=== PATIENT | male | born 1960 | race Caucasian/White ===

== ENCOUNTER → 2017-08-10 | Outpatient (CLI) | payer BC | END | disposition home or self-care (01) | LOC: LABWHC1 12:06 | PROVIDERS: ATTEND Otolaryngology | DX: J30.89 Other allergic rhinitis (principal) | CPT/HCPCS: 36415 ==

== ENCOUNTER 2019-11-04 09:56 | Day surgery (SDC) | payer BC ==
[2019-11-03 09:48] VITALS: BMI 34.4
[~2019-11-04 09:56] MED LIST: LACTATED RINGERS 1,000 ML IV SCH
[2019-11-04 10:38] VITALS: RESP 16; TEMP 97
[2019-11-04] MEDS ORDERED: LIDOCAINE 1% 20 ML VIAL (10MG/ML) FOR IV START INTRADERMA ONE (10:38)
[2019-11-04] MEDS ORDERED: LIDOCAINE 1% INJ 10MG/ML (20 ML MDV) ONE (11:05)
[2019-11-04] MEDS ORDERED: PROPOFOL 10 MG/ML 20 ML VIAL IV ONE (11:05)
[2019-11-04] MEDS ORDERED: KETAMINE 10 MG/ML 20 ML VIAL ONE (11:05)
--- NOTE | 2019-11-04 11:26 | P.PCN ---
Date of Procedure: 11/04/19 Procedure(s) Performed: Brief history: Patient is a pleasant 5-year-old white male, scheduled for an elective upper endoscopy as well as colonoscopy as a part of evaluation of a sense of GERD and screening for colorectal neoplasia. Procedure performed: Esophagogastroduodenoscopy with biopsy Colonoscopy with snare polypectomy Preoperative diagnosis: GERD Screening for colon cancer Anesthesia: MAC Procedure: After informed consent was obtained from the patient was brought into the endoscopy unit and IV sedation was administered by anesthesia under continuous monitoring. Initially upper endoscopy was done. The Olympus GF 160 video endoscope was inserted inserted into the mouth and esophagus intubated without any difficulty and was gradually advanced into the stomach and duodenum and carefully examined. The bulb and second part of the duodenum appeared normal. The scope was then withdrawn into the stomach adequately insufflated with air and upon careful examination the antrum had mild gastritis and biopsies were done from this area. The body, cardia and fundus appeared normal. The scope was then withdrawn into the esophagus. Small to moderate size hiatal hernia noted The GE junction was located at 40 cm to the incisors. It appeared regular with linear erosions in the distal esophagus consistent with LA grade B reflux esophagitis. Rest of the esophagus appeared normal. Patient tolerated the procedure well. At this time the patient continued to remain sedation. Initial digital rectal examination was normal. Olympus CF 160 video colonoscope was then inserted into the rectum and gradually advanced to the cecum without any difficulty. Careful examination was performed as the scope was gradually being withdrawn. The prep was excellent. In the base of the cecum there were 2 polyps measuring 5 mm in size both of which were removed by snare polypectomy. The cecum, ascending colon, transverse colon, descending colon, sigmoid colon appeared normal. In the sigmoid colon polyp by snare polypectomy. The rectum appeared normal. Retroflexion was performed in the rectum and no lesions were noted. Patient tolerated the procedure well. Impression: 1. Upper endoscopy revealed small to moderate size hiatal hernia and LA grade B reflux esophagitis 2. Colonoscopy revealed 5 mm 2 cecal polyps and a 5 mm sigmoid colon polyp status post snare polypectomy Recommendations: Findings of this examination were discussed with the patient as well as his family. he was advised to follow with the biopsy results. He will stop the famotidine he was advised to start on Prilosec 20 mg daily and follow antireflux measures. If the biopsies of the colon polyps show an adenoma he can have a repeat colonoscopy in 3-5 years
[2019-11-04 11:45] VITALS: BP 146/83; PULSE 78
== END 2019-11-04 12:37 | disposition home or self-care (01) ==
LOC: ORWHC2ENDO 09:56
PROVIDERS: ATTEND Internal Medicine Gastroenterology
DX: K21.0 Gastro-esophageal reflux disease with esophagitis (principal); Z12.11 Encounter for screening for malignant neoplasm of colon; K29.50 Unspecified chronic gastritis without bleeding; D12.0 Benign neoplasm of cecum; D12.5 Benign neoplasm of sigmoid colon; K44.9 Diaphragmatic hernia without obstruction or gangrene; Z79.899 Other long term (current) drug therapy; I10 Essential (primary) hypertension; I20.9 Angina pectoris, unspecified
CPT/HCPCS: 88305; 45385; 43239; J2001; J2704

== ENCOUNTER 2021-02-16 15:34 | Emergency (ER) | payer BC ==
--- NOTE | 2021-02-16 16:13 | XR ---
EXAMINATION TYPE: XR chest 2V DATE OF EXAM: 02/16/2021 COMPARISON: 02/16/2021 HISTORY: Shortness of breath TECHNIQUE: Frontal and lateral views of the chest are obtained. FINDINGS: Scattered senescent parenchymal changes noted. Hyperinflation compatible with COPD. Scattered interstitial infiltrates suspicious for Covid 19 pneumonia. Heart size is stable. Mediastinal structures are stable and grossly unremarkable. No evidence for hilar prominence. Degenerative changes dorsal spine. IMPRESSION: 1. Scattered interstitial infiltrates suspicious for Covid 19 pneumonia.
[2021-02-16] MEDS ORDERED: ACETAMINOPHEN TAB 500 MG TAB PO STA (17:52)
[2021-02-16] MEDS ORDERED: IBUPROFEN 600 MG TAB PO STA (17:52)
--- NOTE | 2021-02-16 17:57 | ED ---
General Adult HPI - General Chief complaint: Recheck/Abnormal Lab/Rx Stated complaint: ANNIE Time Seen by Provider: 02/16/21 17:11 Source: patient Mode of arrival: ambulatory Limitations: no limitations - History of Present Illness Initial comments: 61-year-old male with a past medical history of GERD, hypertension presents to the emergency room for a chief complaint of shortness of breath. Patient reports that he was diagnosed with COVID 5 days ago. He states he developed symptoms of cough and shortness of breath 7 days ago. Patient presents today to evaluate his lungs. Patient states that he feels he cannot take a deep breath without coughing. Wants to make sure there is not fluid in his lungs. Patient denies chest pain. Patient states he is not taking Motrin or Tylenol today, has been having fevers. patient has also had some diarrhea. Denies vomiting but does admit to loss of appetite.Patient has no other complaints at this time inc luding chest pain, abdominal pain, nausea or vomiting, headache, or visual changes. - Related Data Home Medications Medication Instructions Recorded Confirmed Acid Reflux Medication 1 tab PO DAILY PRN 11/03/19 11/04/19 Hydrochlorothiazie(Dose Unknow 1 tab PO HS 11/03/19 11/04/19 Metoprolol(Dose Unknown) 1 tab PO HS 11/03/19 11/04/19 Previous Rx's Medication Instructions Recorded Albuterol Inhaler [Ventolin Hfa 2 puff INHALATION RT-QID PRN #1 02/16/21 Inhaler] inhaler Benzonatate [Tessalon Perles] 200 mg PO Q8H PRN #15 capsule 02/16/21 guaiFENesin [Mucinex] 600 mg PO Q12HR PRN #20 tablet.er 02/16/21 Allergies Allergy/AdvReac Type Severity Reaction Status Date / Time No Known Allergies Allergy Verified 02/16/21 15:52 Review of Systems ROS Statement: Those systems with pertinent positive or pertinent negative responses have been documented in the HPI. ROS Other: All systems not noted in ROS Statement are negative. Past Medical History Past Medical History: Chest Pain / Angina, GERD/Reflux, Hypertension Additional Past Medical History / Comment(s): chest pain ruled out not heart related by PCP, History of Any Multi-Drug Resistant Organisms: None Reported Additional Past Surgical History / Comment(s): oral surgery, vasectomy, Past Anesthesia/Blood Transfusion Reactions: Motion Sickness Past Psychological History: No Psychological Hx Reported Smoking Status: Never smoker Past Alcohol Use History: None Reported Past Drug Use History: None Reported - Past Family History Brother(s) Family Medical History: Cancer Mother Family Medical History: Cancer Father Family Medical History: Cancer General Exam Limitations: no limitations General appearance: alert, in no apparent distress Head exam: Present: atraumatic, normocephalic, normal inspection Eye exam: Present: normal appearance, PERRL, EOMI. Absent: scleral icterus, conjunctival injection, periorbital swelling ENT exam: Present: normal exam, mucous membranes moist Neck exam: Present: normal inspection. Absent: tenderness, meningismus, lymphadenopathy Respiratory exam: Present: other (Course lung sounds bilaterally). Absent: respiratory distress, wheezes, rales, rhonchi, stridor Cardiovascular Exam: Present: regular rate, normal rhythm, normal heart sounds. Absent: systolic murmur, diastolic murmur, rubs, gallop, clicks GI/Abdominal exam: Present: soft, normal bowel sounds. Absent: distended, tenderness, guarding, rebound, rigid Neurological exam: Present: alert Course Vital Signs 02/16/21 15:48 Temperature 98.6 F Pulse Rate 105 H Respiratory 20 Rate Blood Pressure 145/85 O2 Sat by Pulse 95 Oximetry Medical Decision Making - Medical Decision Making Vitals are stable. I did take his temperature myself in the room and it is 102.8. Likely the cause of his slight tachycardia at 105. Patient given Motrin and Tylenol in the emergency room. Chest x-ray was obtained which did show scattered interstitial infiltrates suspicious for COVID Pneumonia. I did confirm patient's positive test results through his phone at [facility]. Patient is satting 95-96% on room air. At this time patient is stable for discharge. I did discuss antibodies and patient does wish to have these done. He does meet for his BMI of 35.2. Patient will be given prescriptions for supportive medication. I discussed strict return parameter for any worsening symptoms such as shortness of breath. Disposition Clinical Impression: COVID-19, Pneumonia due to COVID-19 virus Disposition: HOME SELF-CARE Condition: Good Instructions (If sedation given, give patient instructions): Coronavirus Disease 2019 (COVID-19) Additional Instructions: Please take Motrin and Tylenol for fever. Please drink plenty of fluids. Take medications as directed. Follow-up with your doctor in one to 2 days. Return to the emergency room for any worsening symptoms such as worsening shortness of breath. Prescriptions: guaiFENesin [Mucinex] 600 mg PO Q12HR PRN #20 tablet.er PRN Reason: Congestion Benzonatate [Tessalon Perles] 200 mg PO Q8H PRN #15 capsule PRN Reason: Cough Albuterol Inhaler [Ventolin Hfa Inhaler] 2 puff INHALATION RT-QID PRN #1 inhaler PRN Reason: Shortness Of Breath Is patient prescribed a controlled substance at d/c from ED?: No Referrals: Cameron Katz DO [Primary Care Provider] - 1-2 days Time of Disposition: 17:56
[2021-02-16] MEDS ORDERED: BAMLANIVIMAB (EUA) 700 MG, ETESEVIMAB (EUA) 1,400 MG in SODIUM CHLORIDE 0.9% 50 ML IVPB ONE (18:30)
[2021-02-16 23:26] VITALS: BP 131/78; PULSE 94; RESP 15; TEMP 99
== END 2021-02-16 21:43 ==
LOC: EC 15:34
DX: U07.1 COVID-19 (principal); J12.82 Pneumonia due to coronavirus disease 2019; I10 Essential (primary) hypertension; K21.9 Gastro-esophageal reflux disease without esophagitis; Z79.899 Other long term (current) drug therapy
CPT/HCPCS: 71046; 99284; 96365; Q0245

== ENCOUNTER 2021-02-18 08:43 | Inpatient (IN) | payer BC ==
[2021-02-18] MEDS ORDERED: SODIUM CHLORIDE 0.9% 1,000 ML IV STA (08:52)
[2021-02-18] MEDS ORDERED: DEXAMETHASONE SOD PHOSPHATE 10 MG/ML 1 ML VIAL IV STA (08:53)
--- NOTE | 2021-02-18 08:56 | ED ---
General Adult HPI - General Stated complaint: ANNIE Time Seen by Provider: 02/18/21 08:44 Source: patient, EMS, RN notes reviewed Mode of arrival: EMS Limitations: no limitations - History of Present Illness Initial comments: This a 61-year-old male presents emergency department via EMS with chief complaint of shortness of breath. Patient states he tested positive for covid was seen here recently and was given monoclonal antibodies. Patient states he steadily declining. Patient states that he's felt increasing shortness breath no history of asthma or COPD patient is a nonsmoker. Patient does have a history of hypertension. Patient states that he's had some diarrhea no significant nausea vomiting he states that decreased oral intake. He's had on-and-off bodyaches, chills. - Related Data Home Medications Medication Instructions Recorded Confirmed Ascorbic Acid [Vitamin C] 1,000 mg PO HS 02/16/21 02/18/21 Cholecalciferol (Vitamin D3) 125 mcg PO HS 02/16/21 02/18/21 [Vitamin D3 (5000 Iu)] Metoprolol Succinate (ER) [Toprol 50 mg PO HS 02/16/21 02/18/21 Xl] RX: Echinacea 500 mg PO HS 02/16/21 02/18/21 RX: Omeprazole 20 mg PO HS 02/16/21 02/18/21 Zinc Sulfate [Orazinc] 220 mg PO HS 02/16/21 02/18/21 hydroCHLOROthiazide [Hydrodiuril] 25 mg PO HS 02/16/21 02/18/21 Previous Rx's Medication Instructions Recorded Benzonatate [Tessalon Perles] 200 mg PO Q8H PRN #15 capsule 02/16/21 RX: Albuterol Inhaler [Ventolin 2 puff INHALATION RT-QID PRN #1 02/16/21 Hfa Inhaler] inhaler guaiFENesin [Mucinex] 600 mg PO Q12HR PRN #20 tablet.er 02/16/21 Allergies Allergy/AdvReac Type Severity Reaction Status Date / Time No Known Allergies Allergy Verified 02/16/21 18:08 Review of Systems ROS Statement: Those systems with pertinent positive or pertinent negative responses have been documented in the HPI. ROS Other: All systems not noted in ROS Statement are negative. Past Medical History Past Medical History: Chest Pain / Angina, GERD/Reflux, Hypertension Additional Past Medical History / Comment(s): chest pain ruled out not heart related by PCP, History of Any Multi-Drug Resistant Organisms: None Reported Additional Past Surgical History / Comment(s): oral surgery, vasectomy, Past Anesthesia/Blood Transfusion Reactions: Motion Sickness Past Psychological History: No Psychological Hx Reported Smoking Status: Never smoker Past Alcohol Use History: None Reported Past Drug Use History: None Reported - Past Family History Brother(s) Family Medical History: Cancer Mother Family Medical History: Cancer Father Family Medical History: Cancer General Exam General appearance: alert, in no apparent distress Head exam: Present: atraumatic, normocephalic, normal inspection Eye exam: Present: normal appearance, PERRL, EOMI. Absent: scleral icterus, conjunctival injection, periorbital swelling ENT exam: Present: normal exam, normal oropharynx, mucous membranes moist, TM's normal bilaterally Neck exam: Present: normal inspection, full ROM. Absent: tenderness, meni ngismus, lymphadenopathy Respiratory exam: Present: decreased breath sounds. Absent: normal lung sounds bilaterally, respiratory distress, wheezes, rales, rhonchi, stridor Cardiovascular Exam: Present: regular rate, normal rhythm, normal heart sounds. Absent: systolic murmur, diastolic murmur, rubs, gallop, clicks Back exam: Absent: CVA tenderness (R), CVA tenderness (L) Neurological exam: Present: alert, oriented X3 Course Vital Signs 02/18/21 02/18/21 08:53 09:12 Temperature 98.6 F Pulse Rate 96 102 H Respiratory 20 22 Rate Blood Pressure 141/74 139/86 O2 Sat by Pulse 91 L 95 Oximetry Medical Decision Making - Medical Decision Making X-ray shows worsening infiltrates. Patient's pulse ox room air is 87 and 91. Patient does have some mild sore distress. Patient was placed on 2 L oxygen which improved. Patient be admitted for covid treatment. - Lab Data Result diagrams: 02/18/21 08:56 02/18/21 08:56 Lab Results 02/18/21 02/18/21 02/18/21 Range/Units 08:56 08:56 08:56 WBC 4.3 (3.8-10.6) k/uL RBC 4.97 (4.30-5.90) m/uL Hgb 14.8 (13.0-17.5) gm/dL Hct 42.2 (39.0-53.0) % MCV 85.0 (80.0-100.0) fL MCH 29.8 (25.0-35.0) pg MCHC 35.0 (31.0-37.0) g/dL RDW 13.3 (11.5-15.5) % Plt Count 149 L (150-450) k/uL MPV 8.0 Neutrophils % 60 % Lymphocytes % 30 % Monocytes % 8 % Eosinophils % 0 % Basophils % 0 % Neutrophils # 2.6 (1.3-7.7) k/uL Lymphocytes # 1.3 (1.0-4.8) k/uL Monocytes # 0.3 (0-1.0) k/uL Eosinophils # 0.0 (0-0.7) k/uL Basophils # 0.0 (0-0.2) k/uL APTT 22.8 (22.0-30.0) sec Sodium 137 (137-145) mmol/L Potassium 3.3 L (3.5-5.1) mmol/L Chloride 98 (98-107) mmol/L Carbon Dioxide 28 (22-30) mmol/L Anion Gap 11 mmol/L BUN 18 (9-20) mg/dL Creatinine 0.98 (0.66-1.25) mg/dL Est GFR (CKD-EPI)AfAm >90 (>60 ml/min/1.73 sqM) Est GFR (CKD-EPI)NonAf 83 (>60 ml/min/1.73 sqM) Glucose 120 H (74-99) mg/dL Calcium 8.4 (8.4-10.2) mg/dL Magnesium 2.0 (1.6-2.3) mg/dL Total Bilirubin 1.0 (0.2-1.3) mg/dL AST 122 H (17-59) U/L ALT 88 H (4-49) U/L Alkaline Phosphatase 46 (38-126) U/L Troponin I (0.000-0.034) ng/mL Total Protein 6.9 (6.3-8.2) g/dL Albumin 3.7 (3.5-5.0) g/dL 02/18/21 Range/Units 08:56 WBC (3.8-10.6) k/uL RBC (4.30-5.90) m/uL Hgb (13.0-17.5) gm/dL Hct (39.0-53.0) % MCV (80.0-100.0) fL MCH (25.0-35.0) pg MCHC (31.0-37.0) g/dL RDW (11.5-15.5) % Plt Count (150-450) k/uL MPV Neutrophils % % Lymphocytes % % Monocytes % % Eosinophils % % Basophils % % Neutrophils # (1.3-7.7) k/uL Lymphocytes # (1.0-4.8) k/uL Monocytes # (0-1.0) k/uL Eosinophils # (0-0.7) k/uL Basophils # (0-0.2) k/uL APTT (22.0-30.0) sec Sodium (137-145) mmol/L Potassium (3.5-5.1) mmol/L Chloride (98-107) mmol/L Carbon Dioxide (22-30) mmol/L Anion Gap mmol/L BUN (9-20) mg/dL Creatinine (0.66-1.25) mg/dL Est GFR (CKD-EPI)AfAm (>60 ml/min/1.73 sqM) Est GFR (CKD-EPI)NonAf (>60 ml/min/1.73 sqM) Glucose (74-99) mg/dL Calcium (8.4-10.2) mg/dL Magnesium (1.6-2.3) mg/dL Total Bilirubin (0.2-1.3) mg/dL AST (17-59) U/L ALT (4-49) U/L Alkaline Phosphatase (38-126) U/L Troponin I <0.012 (0.000-0.034) ng/mL Total Protein (6.3-8.2) g/dL Albumin (3.5-5.0) g/dL Disposition Clinical Impression: COVID-19, Pneumonia due to COVID-19 virus Disposition: ADMITTED IP TO THIS [facility] Condition: Poor Referrals: Cameron Katz DO [Primary Care Provider] - 1-2 days
[2021-02-18 09:19] LABS: Basophils % (A) 0 %; Eosinophils % (A) 0 %; HCT 42.2 % (39.0-53.0); HGB 14.8 gm/dL (13.0-17.5); Lymphocytes # (A) 1.3 k/uL (1.0-4.8); Lymphocytes % (A) 30 %; MCH 29.8 pg (25.0-35.0); Monocytes # (A) 0.3 k/uL (0-1.0); Monocytes % (A) 8 %; Neutrophils # (A) 2.6 k/uL (1.3-7.7); Neutrophils % (A) 60 %; Platelet Count 149 k/uL (150-450); RBC 4.97 m/uL (4.30-5.90); RDW 13.3 % (11.5-15.5); WBC 4.3 k/uL (3.8-10.6)
--- NOTE | 2021-02-18 09:20 | XR ---
EXAMINATION TYPE: XR chest 1V portable DATE OF EXAM: 02/18/2021 COMPARISON: 02/16/2021 HISTORY: Covid TECHNIQUE: Single frontal view of the chest is obtained. FINDINGS: The lungs bilaterally there receiving partially consolidative opacities most consistent with an acute pneumonic process. There is no pleural effusion or pneumothorax. Heart size is normal. The osseous structures are intact . Impression: interval worsening in the bilateral lung opacities
[2021-02-18 09:23] LABS: ALT 88 U/L (4-49); African American GFR (CKD) >90 (>60 ml/min/1.73 sqM); Anion Gap 11 mmol/L; Blood Urea Nitrogen 18 mg/dL (9-20); Calcium 8.4 mg/dL (8.4-10.2); Carbon Dioxide 28 mmol/L (22-30); Chloride 98 mmol/L (98-107); Glucose 120 mg/dL (74-99); Non-African American GFR(CKD) 83 (>60 ml/min/1.73 sqM); Sodium 137 mmol/L (137-145)
[2021-02-18 09:26] LABS: AST 122 U/L (17-59); Albumin 3.7 g/dL (3.5-5.0); Alkaline Phosphatase 46 U/L (38-126); Potassium 3.3 mmol/L (3.5-5.1); Total Protein 6.9 g/dL (6.3-8.2)
[2021-02-18] MEDS ORDERED: ONDANSETRON 4 MG/2 ML VIAL IVP PRN (10:10)
[2021-02-18] MEDS ORDERED: ACETAMINOPHEN TAB 325 MG TAB PO PRN (10:10)
[2021-02-18] MEDS ORDERED: IBUPROFEN 600 MG TAB PO PRN (10:10)
[2021-02-18] MEDS ORDERED: NALOXONE 0.4 MG/ML 1 ML VIAL IV PRN (10:10)
--- NOTE | 2021-02-18 12:42 | P.CNPUL ---
History of Present Illness Consult date: 02/18/21 Requesting physician: Nazario Shannon Reason for consult: dyspnea, cough, hypoxemia, pneumonia, abnormal CXR/CT Chief complaint: Shortness of breath. History of present illness: This is a 61-year-old male who was seen in the emergency department on February 18. He came in with chief complaint of shortness of breath. He also had fever, chills, cough, weakness, and fatigue. The patient has been feeling poorly for at least 10 days to 12 days. The patient apparently tested for COVID last Saturday, and heard about the results being positive on Saturday. The patient came into the emergency room on , February 16, and received monoclonal antibody was discharged from the emergency room. He had similar complaints to now but more recently, his complaints have gotten worse. He is very short of breath with any activity. Recent laying or sitting, he feels okay. His only major medical problem he tells me is hypertension. He sees a family doctor in [place], [place]. A list of his medications are included in the ER naif. When I went to see him in the ER, he was on 2 L nasal cannula. He was not receiving any IV fluids. Review of Systems REVIEW OF SYSTEMS: CONSTITUTIONAL: Weakness, fatigue, fever, chills, body aches. NEUROLOGIC: [ Negative.] HEENT: [ Negative.] CARDIAC: [Negative.] PULMONARY: Shortness of breath, cough, chest congestion. GI: Nausea. : [Negative.] RHEUMATOLOGIC: [ Negative.] IMMUNOLOGIC: [ Negative.] ENDOCRINE: [Negative. ] DERMATOLOGIC: [Negative.] Past Medical History Past Medical History: Chest Pain / Angina, GERD/Reflux, Hypertension Additional Past Medical History / Comment(s): chest pain ruled out not heart related by PCP, History of Any Multi-Drug Resistant Organisms: None Reported Additional Past Surgical History / Comment(s): oral surgery, vasectomy, Past Anesthesia/Blood Transfusion Reactions: Motion Sickness Past Psychological History: No Psychological Hx Reported Smoking Status: Never smoker Past Alcohol Use History: None Reported Past Drug Use History: None Reported - Past Family History Brother(s) Family Medical History: Cancer Mother Family Medical History: Cancer Father Family Medical History: Cancer Medications and Allergies Home Medications Medication Instructions Recorded Confirmed Type Albuterol Inhaler [Ventolin Hfa 2 puff INHALATION RT-QID PRN #1 02/16/21 02/18/21 Rx Inhaler] inhaler Ascorbic Acid [Vitamin C] 1,000 mg PO HS 02/16/21 02/18/21 History Benzonatate [Tessalon Perles] 200 mg PO Q8H PRN #15 capsule 02/16/21 02/18/21 Rx Cholecalciferol (Vitamin D3) 125 mcg PO HS 02/16/21 02/18/21 History [Vitamin D3 (5000 Iu)] Echinacea 500 mg PO HS 02/16/21 02/18/21 History Metoprolol Succinate (ER) [Toprol 50 mg PO HS 02/16/21 02/18/21 History Xl] Omeprazole 20 mg PO HS 02/16/21 02/18/21 History Zinc Sulfate [Orazinc] 220 mg PO HS 02/16/21 02/18/21 History guaiFENesin [Mucinex] 600 mg PO Q12HR PRN #20 tablet.er 02/16/21 02/18/21 Rx hydroCHLOROthiazide [Hydrodiuril] 25 mg PO HS 02/16/21 02/18/21 History Allergies Allergy/AdvReac Type Severity Reaction Status Date / Time No Known Allergies Allergy Verified 02/16/21 18:08 Physical Exam Osteopathic Statement: *. No significant issues noted on an osteopathic structural exam other than those noted in the History and Physical/Consult. Vitals: Vital Signs Temp Pulse Resp BP Pulse Ox 02/18/21 10:09 93 20 138/69 98 02/18/21 09:12 102 H 22 139/86 95 02/18/21 08:53 98.6 F 96 20 141/74 91 L Intake and Output 02/17/21 02/18/21 02/18/21 22:59 06:59 14:59 Other: Weight 111.13 kg No acute distress, oriented 3. No respiratory distress. Currently on 2 L. HEENT examination is grossly unremarkable. Mucous membranes are moist. No oral lesions. Neck supple. Full range of motion. No adenopathy thyromegaly or neck vein distention. Cardiovascular examination reveals regular rhythm rate. S1-S2 normal. No S3 or S4. No discernible murmur noted. Heart rate 93 bpm. Lungs reveal basilar crackles, without rhonchi or wheezes. Breath sounds equal bilaterally. Abdomen soft bowel sounds are heard. No masses or tenderness. Extremities are intact. No cyanosis clubbing or edema. Skin is without rash or lesion. Neurologic examination is brief but nonfocal. Results - Laboratory Findings CBC and BMP: 02/18/21 08:56 02/18/21 08:56 Abnormal lab findings: Abnormal Labs 02/18/21 02/18/21 08:56 08:56 Plt Count 149 L Potassium 3.3 L Glucose 120 H AST 122 H ALT 88 H - Diagnostic Findings Chest x-ray: image reviewed Assessment and Plan Assessment: Acute hypoxemic respiratory failure secondary to COVID 19 pneumonia/pneumonitis. Status post monoclonal antibody (BAM)administration, 02/16/2021. History of hypertension. History of GERD. Plan: Plan dated 02/18/2021. The patient is outside the window for REM. The patient did receive monoclonal antibody on 02/16/2021. The patient should receive Lovenox, Decadron, vitamin C, vitamin D3, and zinc. In addition, the patient should receive supplemental oxygen therapy. Repeat chest x-ray and a day or 2, and repeat inflammatory markers and a day or 2. We'll continue to follow. Prognosis is guarded. No additional recommendations are made. Time with Patient: Greater than 30
[2021-02-18] MEDS ORDERED: BENZONATATE 100 MG CAP PO PRN (16:38)
[2021-02-18] MEDS ORDERED: guaiFENesin 600 MG TABLET.ER PO PRN (16:38)
--- NOTE | 2021-02-18 16:39 | P.HPIM ---
History of Present Illness 61-year-old male came in with complaints of shortness of breath patient was recently diagnosed with cold wind saturday his symptoms are going on for about 10-12 days. Patient received monoclonal antibody infusion on his visit [facility] Saturday about a week ago. Patient symptoms has gotten worse because of which she came back to ER patient is hypoxic with the saturations any 80s, improved to 98% on 2 L of oxygen patient is being admitted and being started on Decadron, chest x-ray showing worsening of bilateral opacities. Review of Systems REVIEW OF SYSTEMS: CONSTITUTIONAL: As mentioned in HPI HEENT: No recent visual problems or hearing problems. Denied any sore throat. CARDIOVASCULAR: No chest pain, orthopnea, PND, no palpitations, no syncope. PULMONARY: no cough, no hemoptysis. GASTROINTESTINAL: No diarrhea, no nausea, no vomiting, no abdominal pain. NEUROLOGICAL: No headaches, no weakness, no numbness. HEMATOLOGICAL: Denies any bleeding or petechiae. GENITOURINARY: Denies any burning micturition, frequency, or urgency. MUSCULOSKELETAL/RHEUMATOLOGICAL: Denies any joint pain, swelling, or any muscle pain. ENDOCRINE: Denies any polyuria or polydipsia. The rest of the 14-point review of systems is negative. Past Medical History Past Medical History: Chest Pain / Angina, GERD/Reflux, Hypertension Additional Past Medical History / Comment(s): chest pain ruled out not heart related by PCP, History of Any Multi-Drug Resistant Organisms: None Reported Additional Past Surgical History / Comment(s): oral surgery, vasectomy, Past Anesthesia/Blood Transfusion Reactions: Motion Sickness Past Psychological History: No Psychological Hx Reported Smoking Status: Never smoker Past Alcohol Use History: None Reported Past Drug Use History: None Reported - Past Family History Brother(s) Family Medical History: Cancer Mother Family Medical History: Cancer Father Family Medical History: Cancer Medications and Allergies Home Medications Medication Instructions Recorded Confirmed Type Albuterol Inhaler [Ventolin Hfa 2 puff INHALATION RT-QID PRN #1 02/16/2102/05 Rx Inhaler] inhaler Ascorbic Acid [Vitamin C] 1,000 mg PO HS 02/16/21 02/18/21 History Benzonatate [Tessalon Perles] 200 mg PO Q8H PRN #15 capsule 02/16/21 02/18/21 Rx Cholecalciferol (Vitamin D3) 125 mcg PO HS 02/16/21 02/18/21 History [Vitamin D3 (5000 Iu)] Echinacea 500 mg PO HS 02/16/21 02/18/21 History Metoprolol Succinate (ER) [Toprol 50 mg PO HS 02/16/21 02/18/21 History Xl] Omeprazole 20 mg PO HS 02/16/21 02/18/21 History Zinc Sulfate [Orazinc] 220 mg PO HS 02/16/21 02/18/21 History guaiFENesin [Mucinex] 600 mg PO Q12HR PRN #20 tablet.er 02/16/21 02/18/21 Rx hydroCHLOROthiazide [Hydrodiuril] 25 mg PO HS 02/16/21 02/18/21 History Allergies Allergy/AdvReac Type Severity Reaction Status Date / Time No Known Allergies Allergy Verified 02/16/21 18:08 Physical Exam Vitals: Vital Signs Temp Pulse Resp BP Pulse Ox 02/18/21 15:18 98.3 F 89 18 142/75 97 02/18/21 10:09 93 20 138/69 98 02/18/21 09:12 102 H 22 139/86 95 02/18/21 08:53 98.6 F 96 20 141/74 91 L Intake and Output 02/18/21 02/18/21 02/18/21 06:59 14:59 22:59 Other: Weight 111.13 kg PHYSICAL EXAMINATION: GENERAL: The patient is alert and oriented x3, not in any acute distress. Well developed, well nourished. HEENT: Pupils are round and equally reacting to light. EOMI. No scleral icterus. No conjunctival pallor. Normocephalic, atraumatic. No pharyngeal erythema. No thyromegaly. CARDIOVASCULAR: S1 and S2 present. No murmurs, rubs, or gallops. PULMONARY: Chest is clear to auscultation, no wheezing or crackles. ABDOMEN: Soft, nontender, nondistended, normoactive bowel sounds. No palpable organomegaly. MUSCULOSKELETAL: No joint swelling or deformity. EXTREMITIES: No cyanosis, clubbing, or pedal edema. NEUROLOGICAL: Gross neurological examination did not reveal any focal deficits. SKIN: No rashes. Results CBC & Chem 7: 02/18/21 08:56 02/18/21 08:56 Labs: Abnormal Lab Results - Last 24 Hours (Table) 02/18/21 02/18/21 Range/Units 08:56 08:56 Plt Count 149 L (150-450) k/uL Potassium 3.3 L (3.5-5.1) mmol/L Glucose 120 H (74-99) mg/dL AST 122 H (17-59) U/L ALT 88 H (4-49) U/L Assessment and Plan Plan: -Acute hypoxic respiratory failure secondary toCovid 19 pneumonia: Patient is on Remdesivir, Decadron, vitamin C, vitamin D3 and zinc. Continue aggressively support wean off as tolerated -Hypertension -Gastroesophageal reflux disease -DVT prophylaxis Lovenox
[2021-02-18] MEDS: PANTOPRAZOLE 40 MG TABLET PO SCH (20:51)
[2021-02-18] MEDS: METOPROLOL SUCCINATE (ER) 50 MG TAB.ER.24H PO SCH (20:51)
[2021-02-19] MEDS: ZINC SULFATE 220 MG CAP PO SCH (09:40)
[2021-02-19] MEDS: ASCORBIC ACID 500 MG TAB PO SCH (09:40)
[2021-02-19] MEDS: dexAMETHasone 2 MG TAB PO SCH (09:40)
[2021-02-19] MEDS: ENOXAPARIN 40 MG/0.4 ML SYRINGE SQ SCH (09:40)
[2021-02-19] MEDS: CHOLECALCIFEROL 25 MCG (1000 IU) TABLET PO SCH (09:40)
--- NOTE | 2021-02-19 12:35 | P.PN ---
Subjective Progress Note Date: 02/19/21 Principal diagnosis: Shortness of breath on exertion. This is a 61-year-old male who was seen in the emergency department on February 18. He came in with chief complaint of shortness of breath. He also had fever, chills, cough, weakness, and fatigue. The patient has been feeling poorly for at least 10 days to 12 days. The patient apparently tested for COVID last Saturday, and heard about the results being positive on Saturday. The patient came into the emergency room on February 16, and received monoclonal antibody was discharged from the emergency room. He had similar complaints to now but more recently, his complaints have gotten worse. He is very short of breath with any activity. Recent laying or sitting, he feels okay. His only major medical problem he tells me is hypertension. He sees a family doctor in [place], [place]. A list of his medications are included in the ER naif. When I went to see him in the ER, he was on 2 L nasal cannula. He was not receiving any IV fluids. Progress note dated 02/19/2021. Currently, the patient's on O2 2 L by nasal cannula. He is not receiving any IV fluids. Physical examination just revealed some bibasilar crackles. The patient was seen yesterday in consultation. Please see my note. Today, he's feeling a bit better than he did yesterday. Still very short of breath with any activity. No new labs today. No new chest x-ray today. His medications were reviewed yesterday. He is on the appropriate vitamins, Lovenox, and Decadron. Objective - Vital Signs Vital signs: Vital Signs Temp 99.6 F 02/19/21 08:00 Pulse 106 H 02/19/21 08:00 Resp 20 02/19/21 08:00 BP 138/75 02/19/21 08:00 Pulse Ox 92 L 02/19/21 08:00 Intake & Output 02/18/21 02/19/21 02/19/21 18:59 06:59 18:59 Output Total 1300 1300 Balance -1300 -1300 Weight 111.13 kg 111.13 kg Output: Urine 1300 1300 - Exam No acute distress, oriented 3. No respiratory distress. Currently on 2 L. HEENT examination is grossly unremarkable. Mucous membranes are moist. No oral lesions. Neck supple. Full range of motion. No adenopathy thyromegaly or neck vein distention. Cardiovascular examination reveals regular rhythm rate. S1-S2 normal. No S3 or S4. No discernible murmur noted. Heart rate 106 bpm. Lungs reveal basilar crackles, without rhonchi or wheezes. Breath sounds equal bilaterally. Today's exam is unchanged. Abdomen soft bowel sounds are heard. No masses or tenderness. Extremities are intact. No cyanosis clubbing or edema. Skin is without rash or lesion. Neurologic examination is brief but nonfocal. - Labs CBC & Chem 7: 02/18/21 08:56 02/18/21 08:56 Assessment and Plan Assessment: Acute hypoxemic respiratory failure secondary to COVID 19 pneumonia/pneumonitis. Status post monoclonal antibody (BAM)administration, 02/16/2021. History of hypertension. History of GERD. Plan: Plan dated 02/18/2021. The patient is outside the window for REM. The patient did receive monoclonal antibody on 02/16/2021. The patient should receive Lovenox, Decadron, vitamin C, vitamin D3, and zinc. In addition, the patient should receive supplemental oxygen therapy. Repeat chest x-ray and a day or 2, and repeat inflammatory markers and a day or 2. We'll continue to follow. Prognosis is guarded. No additional recommendations are made. Plan dated 02/19/2021. The patient was outside the window for REM. He did receive monoclonal antibody on 02/16/2021. He is currently on vitamin C, vitamin D3, and zinc. In addition, he is on Lovenox, and Decadron. Today, he has been the same questions yesterday in the emergency room. He wants to know what his prognosis is. I told him that he should improve. He appears to have relatively mild disease. Time with Patient: Less than 30
[2021-02-19] MEDS: ALBUTEROL HFA INHALER INHALATION PRN (17:09)
[2021-02-19] MEDS: PANTOPRAZOLE 40 MG TABLET PO SCH (20:54)
[2021-02-19] MEDS: METOPROLOL SUCCINATE (ER) 50 MG TAB.ER.24H PO SCH (20:54)
[2021-02-20] MEDS: ALBUTEROL HFA INHALER INHALATION PRN ×4 (07:37→20:44)
[2021-02-20 09:10] LABS: African American GFR (CKD) 93.1 (60.0-200.0); Anion Gap 7.5 mmol/L (4.00-12.00); Calcium 8.8 mg/dL (8.7-10.3); Carbon Dioxide 32.5 mmol/L (21.6-31.8); Non-African American GFR(CKD) 80.3 (60.0-200.0); Potassium 3.4 mmol/L (3.5-5.5)
[2021-02-20] MEDS: ZINC SULFATE 220 MG CAP PO SCH (09:33)
[2021-02-20] MEDS: CHOLECALCIFEROL 25 MCG (1000 IU) TABLET PO SCH (09:33)
[2021-02-20] MEDS: ASCORBIC ACID 500 MG TAB PO SCH (09:33)
[2021-02-20] MEDS: dexAMETHasone 2 MG TAB PO SCH (09:33)
[2021-02-20] MEDS: ENOXAPARIN 40 MG/0.4 ML SYRINGE SQ SCH (09:34)
--- NOTE | 2021-02-20 12:20 | P.PN ---
Subjective Progress Note Date: 02/20/21 Principal diagnosis: Acute hypoxic respiratory failure secondary to acute Covid 19 pneumonia This is a 61-year-old male who was seen in the emergency department on February 18. He came in with chief complaint of shortness of breath. He also had fever, chills, cough, weakness, and fatigue. The patient has been feeling poorly for at least 10 days to 12 days. The patient apparently tested for COVID last Saturday, and heard about the results being positive on Saturday. The patient came into the emergency room on February 16, and received monoclonal antibody was discharged from the emergency room. He had similar complaints to now but more recently, his complaints have gotten worse. He is very short of breath with any activity. Recent laying or sitting, he feels okay. His only major medical problem he tells me is hypertension. He sees a family doctor in [place], [place]. A list of his medications are included in the ER naif. When I went to see him in the ER, he was on 2 L nasal cannula. He was not receiving any IV fluids. Progress note dated 02/19/2021. Currently, the patient's on O2 2 L by nasal cannula. He is not receiving any IV fluids. Physical examination just revealed some bibasilar crackles. The patient was seen yesterday in consultation. Please see my note. Today, he's feeling a bit better than he did yesterday. Still very short of breath with any activity. No new labs today. No new chest x-ray today. His medications were reviewed yesterday. He is on the appropriate vitamins, Lovenox, and Decadron. Patient was reevaluated today on 02/20/2021, patient seems to be doing much better, breathing a lot easier today. He is now only on 2 L nasal cannula. His last chest x-ray clearly showed evidence of bilateral infiltrates left more so than right. Patient received monoclonal antibody treatment/BAM on 02/16/2021, and he was discharged home but he was readmitted for his worsening symptoms of Covid 19 pneumonia. Today, the patient has O2 saturation of 95% on 2 L but 88% on room air. Electrolytes are normal except for low potassium of 3.4. Renal profile is normal. CBC is relatively normal. D-dimer on admission was only 0.55. Objective - Vital Signs Vital signs: Vital Signs Temp 98.1 F 02/20/21 08:00 Pulse 84 02/20/21 08:00 Resp 16 02/20/21 08:00 BP 145/83 02/20/21 08:00 Pulse Ox 88 L 02/20/21 10:39 Intake & Output 02/19/21 02/20/21 02/20/21 18:59 06:59 18:59 Output Total 1300 Balance -1300 Output: Urine 1300 Other: # Voids 2 - Exam Physical Exam: Revealed 61-year-old white male in no distress. On 2 L nasal cannula. Has mostly dyspnea on exertion. Head: Atraumatic, normocephalic. HEENT:[Neck is supple.] [No neck masses.] [No thyromegaly.] [No JVD.] Chest: [Symmetrical chest expansion, crackles at the left base. No rhonchi and no wheezes..] Cardiac Exam: [Normal S1 and S2, no S3 gallop, no murmur.] Abdomen: [Soft, nontender, no megaly, no rebound, no guarding, normal bowel sounds.] Extremities: [No clubbing, no edema, no cyanosis.] Neurological Exam: [No focal neurologic deficit. Alert and oriented 3. Psychiatric: Normal mood affect and normal mental status examination. Skin: No rashes. Musculoskeletal: No deformities noted limitation range of motion.] - Labs CBC & Chem 7: 02/18/21 08:56 02/20/21 05:37 Labs: Abnormal Lab Results - Last 24 Hours (Table) 02/20/21 Range/Units 05:37 Potassium 3.4 L (3.5-5.5) mmol/L Carbon Dioxide 32.5 H (21.6-31.8) mmol/L BUN 28.0 H (9.0-27.0) mg/dL BUN/Creatinine Ratio 28.00 H (12.00-20.00) Ratio Glucose 141 H (70-110) mg/dL Assessment and Plan Assessment: Impression: Acute hypoxic respiratory failure secondary to acute covid 19 pneumonia. Status post monoclonal antibody administration on 02/16/2021. History of benign essential hypertension History of GERD. Recommendation: Consider discharge planning on the patient either today or tomorrow Would definitely recommend home oxygen. Would recommend that he remains on the Covid 19 cocktail. Would give the patient 10 days of Decadron, 6 mg by mouth daily. Continue zinc and vitamins. Considering his d-dimer is normal, no need for anticoagulation therapy, but would recommend aspirin. Time with Patient: Less than 30
--- NOTE | 2021-02-20 16:16 | P.PN ---
Subjective Progress Note Date: 02/19/21 61-year-old male came in with complaints of shortness of breath patient was recently diagnosed with cold wind saturday his symptoms are going on for about 10-12 days. Patient received monoclonal antibody infusion on his visit [facility] last Saturday about a week ago. Patient symptoms has gotten worse because of which she came back to ER patient is hypoxic with the saturations any 80s, improved to 98% on 2 L of oxygen patient is being admitted and being started on Decadron, chest x-ray showing worsening of bilateral opacities. 02/19/2021 Patient is still requiring 2 L of oxygen by face or crackles on exam although patient is feeling better compared to admission Constitutional: Denied any fatigue denied any fever. Cardio vascular: denied any chest pain, palpitations Gastrointestinal denied any nausea vomiting Pulmonary: Denied any shortness of breath cough Neurologic denied any new focal deficits All inpatient medications were reviewed and appropriate changes in these medications as dictated in the interval history and assessment and plan. Objective - Vital Signs Vital signs: Vital Signs Temp 97.9 F 02/20/21 14:00 Pulse 91 02/20/21 15:20 Resp 16 02/20/21 14:00 BP 134/71 02/20/21 14:00 Pulse Ox 98 02/20/21 15:20 Intake & Output 02/19/21 02/20/21 02/20/21 18:59 06:59 18:59 Output Total 1300 Balance -1300 Output: Urine 1300 Other: # Voids 2 - Exam PHYSICAL EXAMINATION: GENERAL: The patient is alert and oriented x3, not in any acute distress. Well developed, well nourished. HEENT: Pupils are round and equally reacting to light. EOMI. No scleral icterus. No conjunctival pallor. Normocephalic, atraumatic. No pharyngeal erythema. No thyromegaly. CARDIOVASCULAR: S1 and S2 present. No murmurs, rubs, or gallops. PULMONARY: Chest is clear to auscultation, no wheezing or crackles. ABDOMEN: Soft, nontender, nondistended, normoactive bowel sounds. No palpable organomegaly. MUSCULOSKELETAL: No joint swelling or deformity. EXTREMITIES: No cyanosis, clubbing, or pedal edema. NEUROLOGICAL: Gross neurological examination did not reveal any focal deficits. SKIN: No rashes. - Labs CBC & Chem 7: 02/18/21 08:56 02/20/21 05:37 Labs: Abnormal Lab Results - Last 24 Hours (Table) 02/20/21 Range/Units 05:37 Potassium 3.4 L (3.5-5.5) mmol/L Carbon Dioxide 32.5 H (21.6-31.8) mmol/L BUN 28.0 H (9.0-27.0) mg/dL BUN/Creatinine Ratio 28.00 H (12.00-20.00) Ratio Glucose 141 H (70-110) mg/dL Assessment and Plan Plan: -Acute hypoxic respiratory failure secondary toCovid 19 pneumonia: Patient is on Remdesivir, Decadron, vitamin C, vitamin D3 and zinc. Continue aggressively support wean off as tolerated -Hypertension -Gastroesophageal reflux disease -DVT prophylaxis Lovenox
--- NOTE | 2021-02-20 16:17 | P.PN ---
Subjective 61-year-old male came in with complaints of shortness of breath patient was recently diagnosed with cold wind saturday his symptoms are going on for about 10-12 days. Patient received monoclonal antibody infusion on his visit [facility] saturday about a week ago. Patient symptoms has gotten worse because of which she came back to ER patient is hypoxic with the saturations any 80s, improved to 98% on 2 L of oxygen patient is being admitted and being started on Decadron, chest x-ray showing worsening of bilateral opacities. 02/19/2021 Patient is still requiring 2 L of oxygen by face or crackles on exam although patient is feeling better compared to admission. 02/20/2021 Patient did is doing much better today and not requiring oxygen but the patient desaturates upon ambulation with one more day's duration patient may not require oxygen patient probably will be discharged tomorrow Constitutional: Denied any fatigue denied any fever. Cardio vascular: denied any chest pain, palpitations Gastrointestinal denied any nausea vomiting Pulmonary: Denied any shortness of breath cough Neurologic denied any new focal deficits All inpatient medications were reviewed and appropriate changes in these medications as dictated in the interval history and assessment and plan. Objective - Vital Signs Vital signs: Vital Signs Temp 97.9 F 02/20/21 14:00 Pulse 91 02/20/21 15:20 Resp 16 02/20/21 14:00 BP 134/71 02/20/21 14:00 Pulse Ox 98 02/20/21 15:20 Intake & Output 02/19/21 02/20/21 02/20/21 18:59 06:59 18:59 Output Total 1300 Balance -1300 Output: Urine 1300 Other: # Voids 2 - Exam PHYSICAL EXAMINATION: GENERAL: The patient is alert and oriented x3, not in any acute distress. Well developed, well nourished. HEENT: Pupils are round and equally reacting to light. EOMI. No scleral icterus. No conjunctival pallor. Normocephalic, atraumatic. No pharyngeal erythema. No thyromegaly. CARDIOVASCULAR: S1 and S2 present. No murmurs, rubs, or gallops. PULMONARY: Chest is clear to auscultation, no wheezing or crackles. ABDOMEN: Soft, nontender, nondistended, normoactive bowel sounds. No palpable organomegaly. MUSCULOSKELETAL: No joint swelling or deformity. EXTREMITIES: No cyanosis, clubbing, or pedal edema. NEUROLOGICAL: Gross neurological examination did not reveal any focal deficits. SKIN: No rashes. - Labs CBC & Chem 7: 02/18/21 08:56 02/20/21 05:37 Labs: Abnormal Lab Results - Last 24 Hours (Table) 02/20/21 Range/Units 05:37 Potassium 3.4 L (3.5-5.5) mmol/L Carbon Dioxide 32.5 H (21.6-31.8) mmol/L BUN 28.0 H (9.0-27.0) mg/dL BUN/Creatinine Ratio 28.00 H (12.00-20.00) Ratio Glucose 141 H (70-110) mg/dL Assessment and Plan Plan: -Acute hypoxic respiratory failure secondary toCovid 19 pneumonia: Patient is on Remdesivir, Decadron, vitamin C, vitamin D3 and zinc. Continue aggressively support wean off as tolerated -Hypertension -Gastroesophageal reflux disease -DVT prophylaxis Lovenox
[2021-02-20] MEDS: PANTOPRAZOLE 40 MG TABLET PO SCH (21:28)
[2021-02-20] MEDS: METOPROLOL SUCCINATE (ER) 50 MG TAB.ER.24H PO SCH (21:28)
[2021-02-21 04:09] LABS: C Reactive Protein 1.5 mg/dL (0.0-0.8)
[2021-02-21] MEDS: ALBUTEROL HFA INHALER INHALATION PRN ×2 (07:16→11:24)
[2021-02-21] MEDS: ZINC SULFATE 220 MG CAP PO SCH (08:40)
[2021-02-21] MEDS: CHOLECALCIFEROL 25 MCG (1000 IU) TABLET PO SCH (08:40)
[2021-02-21] MEDS: ENOXAPARIN 40 MG/0.4 ML SYRINGE SQ SCH (08:41)
[2021-02-21] MEDS: ASCORBIC ACID 500 MG TAB PO SCH (08:41)
[2021-02-21] MEDS: dexAMETHasone 2 MG TAB PO SCH (08:41)
[2021-02-21 08:59] VITALS: BP 132/77; PULSE 78; RESP 18; TEMP 97.6
--- NOTE | 2021-02-21 12:07 | P.PN ---
Subjective Progress Note Date: 02/21/21 Principal diagnosis: Acute hypoxic respiratory failure secondary to acute Covid 19 pneumonia This is a 61-year-old male who was seen in the emergency department on February 18. He came in with chief complaint of shortness of breath. He also had fever, chills, cough, weakness, and fatigue. The patient has been feeling poorly for at least 10 days to 12 days. The patient apparently tested for COVID last Saturday, and heard about the results being positive on Saturday. The patient came into the emergency room on February 16, and received monoclonal antibody was discharged from the emergency room. He had similar complaints to now but more recently, his complaints have gotten worse. He is very short of breath with any activity. Recent laying or sitting, he feels okay. His only major medical problem he tells me is hypertension. He sees a family doctor in [place], [place]. A list of his medications are included in the ER naif. When I went to see him in the ER, he was on 2 L nasal cannula. He was not receiving any IV fluids. Progress note dated 02/19/2021. Currently, the patient's on O2 2 L by nasal cannula. He is not receiving any IV fluids. Physical examination just revealed some bibasilar crackles. The patient was seen yesterday in consultation. Please see my note. Today, he's feeling a bit better than he did yesterday. Still very short of breath with any activity. No new labs today. No new chest x-ray today. His medications were reviewed yesterday. He is on the appropriate vitamins, Lovenox, and Decadron. Patient was reevaluated today on 02/20/2021, patient seems to be doing much better, breathing a lot easier today. He is now only on 2 L nasal cannula. His last chest x-ray clearly showed evidence of bilateral infiltrates left more so than right. Patient received monoclonal antibody treatment/BAM on 02/16/2021, and he was discharged home but he was readmitted for his worsening symptoms of Covid 19 pneumonia. Today, the patient has O2 saturation of 95% on 2 L but 88% on room air. Electrolytes are normal except for low potassium of 3.4. Renal profile is normal. CBC is relatively normal. D-dimer on admission was only 0.55. Reevaluated today on 02/21/2021, patient seems to be doing better today, hardly any cough, no shortness of breath at rest, he does have dyspnea on exertion. Remains on 2 L nasal cannula, and his O2 saturation is ranging between 92% to 98%. Basic metabolic profile is normal. LDH is 491. C-reactive protein is 1.5. Overall, the patient is doing well clinically, and I will recommend discharging the patient home today. Objective - Vital Signs Vital signs: Vital Signs Temp 97.6 F 02/21/21 08:58 Pulse 78 02/21/21 08:58 Resp 18 02/21/21 08:58 BP 132/77 02/21/21 08:58 Pulse Ox 92 L 02/21/21 08:58 Intake & Output 02/20/21 02/21/21 02/21/21 18:59 06:59 18:59 Other: Voiding Method Toilet # Voids 2 - Exam Physical Exam: Revealed 61-year-old white male in no distress. On 2 L nasal cannula. Not in distress. Head: Atraumatic, normocephalic. HEENT:[Neck is supple.] [No neck masses.] [No thyromegaly.] [No JVD.] Chest: [Symmetrical chest expansion, fine crackles at the bases. Cardiac Exam: [Normal S1 and S2, no S3 gallop, no murmur.] Abdomen: [Soft, nontender, no megaly, no rebound, no guarding, normal bowel sounds.] Extremities: [No clubbing, no edema, no cyanosis.] Neurological Exam: [No focal neurologic deficit. Alert and oriented 3. Psychiatric: Normal mood affect and normal mental status examination. Skin: No rashes. Musculoskeletal: No deformities noted limitation range of motion.] - Labs CBC & Chem 7: 02/18/21 08:56 02/20/21 05:37 Labs: Abnormal Lab Results - Last 24 Hours (Table) 02/20/21 Range/Units 05:37 Lactate Dehydrogenase 491 H (120-246) U/L C-Reactive Protein 1.5 H (0.0-0.8) mg/dL Assessment and Plan Assessment: Impression: Acute hypoxic respiratory failure secondary to acute covid 19 pneumonia. Status post monoclonal antibody administration on 02/16/2021. History of benign essential hypertension History of GERD. Recommendation: Cleared for discharge home today. Arrange for home O2. Continue the Covid 19 cocktails for the next 10 days. And continue aspirin. Continue zinc and vitamins. See me in the office in few weeks for follow-up. Time with Patient: Less than 30
--- NOTE | 2021-02-21 16:41 | P.DS ---
Providers Date of admission: 02/18/21 10:40 Expected date of discharge: 02/21/21 Attending physician: Nazario Shannon MD Consults: 02/18/21 10:11 Consult Physician Urgent Consulting Provider: Jose Rafael Guardado Consult Reason/Comments: COVID Do you want consulting provider notified?: Yes [facility] [place]: Final diagnosis -Acute hypoxic respiratory failure secondary to Covid 19 pneumonia -Hypertension -Gastroesophageal reflux disease -DVT prophylaxis Discharge disposition Patient is being discharged in a stable condition with guarded prognosis to home. Patient will follow-up with Dr. Katz in the outpatient setting upon discharge. Patient is also to follow-up with pulmonary in the next few weeks. Patient will require home oxygen secondary to Covid 19 and will continue dexamethasone along with vitamin C and zinc supplements. Prescription was also provided for a hospital bed as patient needs to continue with head of the bed elevated for continued shortness of breath and Covid 19. Total time taken is greater than 35 minutes. Hospital course 61-year-old male came in with complaints of shortness of breath patient was recently diagnosed with cold wind 19 last Saturday his symptoms are going on for about 10-12 days. Patient received monoclonal antibody infusion on his visit to year last Saturday about a week ago. Patient symptoms has gotten worse because of which she came back to ER patient is hypoxic with the saturations any 80s, improved to 98% on 2 L of oxygen patient is being admitted and being started on Decadron, chest x-ray showing worsening of bilateral opacities. 02/19/2021 Patient is still requiring 2 L of oxygen by face or crackles on exam although patient is feeling better compared to admission. 02/20/2021 Patient did is doing much better today and not requiring oxygen but the patient desaturates upon ambulation with one more day's duration patient may not require oxygen patient probably will be discharged tomorrow 02/21/2021 A is seen and evaluated this morning continues to be on oxygen and will require oxygen upon discharge secondary to Covid 19 and will follow up with pulmonary in the outpatient setting. Patient will continue dexamethasone along with vitamin and zinc supplements to complete the course. Patient will also continue on a baby aspirin daily as his d-dimer was elevated. Currently no reports of chest pain, worsening shortness of breath, or palpitations. Patient is afebrile. No reports of nausea or vomiting and patient is tolerating diet. Patient will be discharged home today. On exam vital signs are stable. Cardio S1, S2 are muffled. Respiratory system shows diminished breath sounds at the bases with no wheezing or rhonchi noted. Abdomen is soft and nontender. Nervous system shows focal deficits. Please refer to medication reconciliation sheet for a list of medications. Patient Condition at Discharge: Good Plan - Discharge Summary Discharge Rx Participant: No New Discharge Prescriptions: New Dexamethasone [Decadron] 6 mg PO DAILY 6 Days #6 tablet Ibuprofen [Motrin] 600 mg PO Q6HR PRN #20 tab PRN Reason: Mild Pain Or Fever > 100.5 Acetaminophen Tab [Tylenol] 650 mg PO Q6HR PRN #30 tab PRN Reason: Mild Pain Or Fever > 100.5 Aspirin 81 mg PO DAILY 30 Days #30 chewable Continue guaiFENesin [Mucinex] 600 mg PO Q12HR PRN #20 tablet.er PRN Reason: Congestion Benzonatate [Tessalon Perles] 200 mg PO Q8H PRN #15 capsule PRN Reason: Cough Albuterol Inhaler [Ventolin Hfa Inhaler] 2 puff INHALATION RT-QID PRN #1 inhaler PRN Reason: Shortness Of Breath Echinacea 500 mg PO HS Zinc Sulfate [Orazinc] 220 mg PO HS Omeprazole 20 mg PO HS Metoprolol Succinate (ER) [Toprol XL] 50 mg PO HS Cholecalciferol (Vitamin D3) [Vitamin D3 (5000 Iu)] 125 mcg PO HS Ascorbic Acid [Vitamin C] 1,000 mg PO HS Discontinued hydroCHLOROthiazide [Hydrodiuril] 25 mg PO HS Discharge Medication List Albuterol Inhaler [Ventolin Hfa Inhaler] 2 puff INHALATION RT-QID PRN #1 inhaler 02/16/21 [Rx] Ascorbic Acid [Vitamin C] 1,000 mg PO HS 02/16/21 [History] Benzonatate [Tessalon Perles] 200 mg PO Q8H PRN #15 capsule 02/16/21 [Rx] Cholecalciferol (Vitamin D3) [Vitamin D3 (5000 Iu)] 125 mcg PO HS 02/16/21 [History] Echinacea 500 mg PO HS 02/16/21 [History] Metoprolol Succinate (ER) [Toprol XL] 50 mg PO HS 02/16/21 [History] Omeprazole 20 mg PO HS 02/16/21 [History] Zinc Sulfate [Orazinc] 220 mg PO HS 02/16/21 [History] guaiFENesin [Mucinex] 600 mg PO Q12HR PRN #20 tablet.er 02/16/21 [Rx] Acetaminophen Tab [Tylenol] 650 mg PO Q6HR PRN #30 tab 02/21/21 [Rx] Aspirin 81 mg PO DAILY 30 Days #30 chewable 02/21/21 [Rx] Dexamethasone [Decadron] 6 mg PO DAILY 6 Days #6 tablet 02/21/21 [Rx] Ibuprofen [Motrin] 600 mg PO Q6HR PRN #20 tab 02/21/21 [Rx] Follow up Appointment(s)/Referral(s): Jose Rafael Guardado MD [STAFF PHYSICIAN] - 3 Weeks [facility] [NON-STAFF] - 1-2 Days (Supplier of home oxygen and hospital bed. ) Cameron Katz DO [Primary Care Provider] - 1-2 days Patient Instructions/Handouts: Coronavirus Disease 2019 (COVID-19) Activity/Diet/Wound Care/Special Instructions: Home O2 activity Limited until follow-up follow up with primary care provider upon discharge continue current medications and dexamethasone until finished continue to isolate for an additional 7-10 days until symptom-free Follow-up with pulmonary in the outpatient setting Continue current diet Discharge Disposition: HOME SELF-CARE
== END 2021-02-21 13:28 | disposition home or self-care (01) | DRG 177 ==
LOC: EC 08:43 → 4SSUR 10:40 → 6NMEDSUR 18:36
PROVIDERS: ADMIT Internal Medicine; ATTEND Internal Medicine
DX: U07.1 COVID-19 (principal); J12.82 Pneumonia due to coronavirus disease 2019; J96.01 Acute respiratory failure with hypoxia; I10 Essential (primary) hypertension; K21.9 Gastro-esophageal reflux disease without esophagitis; R19.7 Diarrhea, unspecified; Z79.899 Other long term (current) drug therapy; Z98.52 Vasectomy status; Z80.9 Family history of malignant neoplasm, unspecified
CPT/HCPCS: 36415; 71045; 80048; 80053; 83615; 83735; 84484; 85025; 85379; 85730; 86140; 93005; 94640; 96361; 96374; 99285

== ENCOUNTER → 2023-07-01 | Outpatient (CLI) | payer BC ==
--- NOTE | 2023-07-01 12:24 | XR ---
Supine abdomen. DATE: 07/01/2023. COMPARISON: None available. CLINICAL HISTORY: Kidney stones. IMPRESSION: The bowel gas pattern is nonobstructive. No definitive suspicious calcifications or mass effect are seen on the scope of this examination. Please note that some limitations are noted due to overlying stool and bowel gas.
== END | disposition home or self-care (01) ==
LOC: RADXRMAIN 11:53
PROVIDERS: ATTEND Urology
DX: R31.1 Benign essential microscopic hematuria (principal); N20.0 Calculus of kidney
CPT/HCPCS: 74018

== ENCOUNTER → 2023-07-05 | Day surgery (SDC) | payer BC ==
[~2023-07-05] MED LIST changes: +LIDOCAINE 1% (10MG/ML) FOR IV START INTRADERMA PRN; +PROPOFOL 10 MG/ML 20 ML VIAL IV ONE
[2023-07-05 09:18] VITALS: RESP 16; TEMP 97.8
--- NOTE | 2023-07-05 10:43 | P.PCN ---
Date of Procedure: 07/05/23 Procedure(s) Performed: BRIEF HISTORY: Patient is a 63-year-old pleasant white male scheduled for an elective colonoscopy as a part of evaluation of prior history of colon polyps. Last colonoscopy was 4 years ago. PROCEDURE PERFORMED: Colonoscopy with biopsy. PREOPERATIVE DIAGNOSIS: History of colon polyps. IV sedation per Anesthesia. PROCEDURE: After informed consent was obtained, the patient, was brought into the endoscopy unit. IV sedation was administered by Anesthesia under continuous monitoring. Digital rectal examination was normal. Initially the Olympus CF-160 flexible video colonoscope was then inserted in the rectum, gradually advanced into the cecum without any difficulty. Careful examination was performed as the scope was gradually being withdrawn. Ileocecal valve and the appendiceal orifice were visualized and appeared normal. Prep was excellent. Mucosa of the cecum, appeared normal. In the ascending colon there was a 5 limited polyp that was removed by cold biopsy. Rest of the ascending colon, transverse colon, descending colon, sigmoid colon, and rectum appeared normal. Retroflexion was performed in the rectum and weight 2 internal hemorrhoids were seen. The patient tolerated the procedure well. IMPRESSION: 5 mm ascending colon polyp status post-cold biopsy Rest of the colon appeared Grade 2 internal hemorrhoids RECOMMENDATIONS: Findings of this examination were discussed with the patientas well as a family. He was advised to follow with the biopsy results. If the biopsy reveals adenoma he can have a repeat colonoscopy in 5 years].
[2023-07-05 11:17] VITALS: BP 143/71; PULSE 69
== END ==
LOC: ORWHC2ENDO 08:52
PROVIDERS: ATTEND Internal Medicine Gastroenterology
DX: Z12.11 Encounter for screening for malignant neoplasm of colon (principal); D12.2 Benign neoplasm of ascending colon; K21.9 Gastro-esophageal reflux disease without esophagitis; K64.1 Second degree hemorrhoids; I10 Essential (primary) hypertension; E78.5 Hyperlipidemia, unspecified; Z86.010 Personal history of colon polyps; Z79.899 Other long term (current) drug therapy
CPT/HCPCS: 88305; 45380; J2704

== ENCOUNTER → 2023-07-24 | Outpatient (CLI) | payer BC ==
--- NOTE | 2023-07-24 13:17 | MR ---
EXAMINATION TYPE: MR Prostate wo/w con DATE OF EXAM: 07/24/2023 10:12 AM COMPARISON: None. CLINICAL INDICATION:Male, 63 years old with history of R97.20 ELEVATED PROSTATE SPECIFIC ANTIGEN TECHNIQUE: Multi-planar, multi-sequence imaging of the pelvis is performed prior to and following the uncomplicated administration of bolus intravenous gadolinium. CONTRAST: 10 cc Gadavist Interpretive Criteria: PI-RADS v2.1 SERUM PSA: 1.800 04/05/2022 4.7 on 04/26/2023. SURGICAL PATHOLOGY: No data available. FINDINGS: Prostatic dimensions: 5.0 x 5.9 x 4.6 cm. Ellipsoid Volume: 71.05 (PSA density=0.07 ng/mL/mL) CENTRAL GLAND (Central and Transition Zones/CZ+TZ): Multiple bilateral, heterogenous appearing hypertrophic stromal nodules, without suspicious lesion. M edian lobe hypertrophy with protrusion into the base of the bladder. (PI-RADS 2) PERIPHERAL ZONE (PZ): Bilateral linear, indistinct wedgelike areas of low ADC, and low T2 signal, No evidence of masslike a bnormality, or localized perfusional hypervascularity, to further suggest a focus of clinically signi ficant prostate cancer. (PI-RADS 2) SEMINAL VESICLES (SV): Symmetric and unremarkable. PERIPROSTATIC TISSUES: Unremarkable. LYMPH NODES: No enlarged pelvic lymph node. REMAINING PELVIS: Bladder wall is within normal limits given distention. No abnormal free or organized intrapelvic fluid collection. No pathologic bowel dilation or mural thickening. Bilateral fat containing inguinal hernias. OSSEOUS STRUCTURES: No suspicious osseous abnormality. IMPRESSION: 1. No specific features for high-risk prostate cancer. Maximum PI-RADS score: 2. 2. Moderate BPH, estimated gland volume 71.05 mL. 3. No suspicious osseous lesion. No lymphadenopathy.
== END | disposition home or self-care (01) ==
LOC: RADMRIMAIN 08:56
PROVIDERS: ATTEND Urology
DX: N40.0 Benign prostatic hyperplasia without lower urinary tract symptoms (principal); R97.20 Elevated prostate specific antigen [PSA]
CPT/HCPCS: 72197; A9585

== ENCOUNTER → 2024-06-17 | Outpatient (CLI) | payer MEDICARE, OTHER | END | disposition home or self-care (01) | LOC: LABWHC1 08:40 | PROVIDERS: ATTEND Urology | DX: R97.20 Elevated prostate specific antigen [PSA] (principal) | CPT/HCPCS: 36415; 84153 ==